=== PATIENT | female | born 1955 | race African-American/Black ===

== ENCOUNTER 2024-12-24 08:25 | Day surgery (SDC) | payer OTHER, SELFPAY ==
[2024-12-24] VITALS (10 sets, daily range): BP systolic 114–142; BP diastolic 73–91; PULSE 71–82; RESP 13–19; TEMP 36.1–36.5; O2SAT 95–99; BMI 36.1
[2024-12-24] MEDS: SODIUM CHLORIDE 0.9% 500 ML 500 ML 20 ML IV (10:16)
[2024-12-24] MEDS: DiphenhydrAMINE INJ 50 MG/ML VIAL 25 MG IV (10:21)
[2024-12-24] MEDS: fentaNYL CIT INJ 50 mCg/ML AMP 2ML (ASD USE ONLY) IV (10:21)
[2024-12-24] MEDS: MIDAZOLAM INJ 1 MG/ML VIAL 2 ML (ASD USE ONLY) 2 MG IV (10:30)
--- NOTE | 2024-12-24 10:40 | SUR.PHASEII ---
PATEINT INTO RECOVERY WITH NO ACUTE DISTRESS NOTED, V/S STABLE, NO COMPLAINTS OF PAIN OR NAUSEA AT THIS TIME. PATIENT REPOSITIONS SELF FOR COMFORT. PATIENT PASSING FLATUS. REPORT RECEIVED FROM JERRI PRETTY
--- NOTE | 2024-12-24 11:22 | SUR.PHASEII ---
PATIENT RESTING AND DRINKING 7UP WITH NO DIFFICULTIES. WAITING FOR ARRIVAL OF PATIENT'S RIDE TO GO OVER DISCHARGE
--- NOTE | 2024-12-24 11:28 | SUR.PHASEII ---
PATIENT'S GRANDDAUGHTER AT BEDSIDE ASSISTING THE PATIENT GET DRESSED.
== END 2024-12-24 11:40 | disposition home or self-care (01) ==
PROVIDERS: PCP Family Medicine; Referring Provider Internal Medicine Gastroenterology; Visit Provider Internal Medicine Gastroenterology
PROC: 0DBE8ZX Excision of Large Intestine, Via Natural or Artificial Opening Endoscopic, Diagnostic (ICD-10-PCS; CPT 45380; principal; 2024-12-24 12:45)
DX: K52.9 Noninfective gastroenteritis and colitis, unspecified (principal); K64.8 Other hemorrhoids; K31.89 Other diseases of stomach and duodenum
CPT/HCPCS: 45380; A4649; J1200; J2250; J3010; J7040